=== PATIENT | female | born 1965 | race Two or more races ===

== ENCOUNTER 2018-07-18 11:59 | Day surgery (SDC) | payer OTHER ==
[2018-07-18] MEDS ORDERED: LIDOCAINE 100 MG SYRINGE (14:12)
[2018-07-18] MEDS ORDERED: PROPOFOL 40 ML (14:12)
[2018-07-18] MEDS ORDERED: FENTAnyl 50 MCG/ML VIAL (14:13)
== END 2018-07-18 18:22 | disposition home or self-care (01) ==
LOC: GIL 11:59
DX: Z12.11 Encounter for screening for malignant neoplasm of colon (principal); R19.7 Diarrhea, unspecified; Z85.3 Personal history of malignant neoplasm of breast
CPT/HCPCS: 43235